=== PATIENT | female | born 1985 | race Caucasian/White ===

== ENCOUNTER 2018-05-06 13:16 | Emergency (ER) | payer OTHER ==
[~2018-05-06] VITALS: Ht 167.6 cm; Wt 77.1 kg
[~2018-05-06 13:16] MED LIST: IBUPROFEN 800800 M1 PO; PHENERGAN 25 MG25 M1 PO; POLYSACCHARIDE150 M2; PRENATAL MULTI1 EAC2 PO; VICODIN PO; ZOFRAN ODT4 MG PO; [UNRECOGNIZED DRUG - OTHER] PO
[2018-05-06] MEDS ORDERED: BENZONATATE200 MG PO (13:44)
[2018-05-06] MEDS ORDERED: PREDNISONE 10 M10 M1 PO (13:44)
[2018-05-06] MEDS ORDERED: VENTOLIN HFA INH8 GM INH (13:44)
[2018-05-06] MEDS ORDERED: MEDROLDOSEPACK PO (14:44)
[2018-05-06] MEDS ORDERED: ALLEGRA-D 12 H1 EAC1 PO (14:47)
[2018-05-06] MEDS ORDERED: ZYRTEC10 M4 PO (14:50)
[2018-05-06 15:04] VITALS: BP 128/87
== END 2018-05-06 15:05 | disposition home or self-care (01) ==
LOC: M.ERS 13:16
DX: J30.2 Other seasonal allergic rhinitis (principal); L25.9 Unspecified contact dermatitis, unspecified cause; H50.89 Other specified strabismus

== ENCOUNTER → 2018-07-28 | Outpatient (CLI) | payer OTHER ==
[~2018-07-28] MED LIST changes: +ALLEGRA-D 12 H1 EAC1 PO; +BENZONATATE200 MG PO; +MEDROLDOSEPACK PO; +PREDNISONE 10 M10 M1 PO; +VENTOLIN HFA INH8 GM INH; +ZYRTEC10 M4 PO
== END ==
LOC: M.LAB 11:53 → M.CT 11:53
DX: N83.292 Other ovarian cyst, left side (principal); I86.2 Pelvic varices; M41.86 Other forms of scoliosis, lumbar region; E55.9 Vitamin D deficiency, unspecified; R10.31 Right lower quadrant pain

== ENCOUNTER → 2018-08-19 | Outpatient (CLI) | payer OTHER | LOC: M.ULTRA 10:30 | DX: N83.201 Unspecified ovarian cyst, right side (principal) ==

== ENCOUNTER → 2018-08-24 | Outpatient (CLI) | payer OTHER ==
[2018-08-24 19:11] LABS: CA 125 86.8 U/mL (0.0-38.1)
== END ==
LOC: M.LAB 11:21
PROVIDERS: Obstetrics & Gynecology
DX: E55.9 Vitamin D deficiency, unspecified (principal); N83.209 Unspecified ovarian cyst, unspecified side

== ENCOUNTER → 2018-11-16 | Outpatient (CLI) | payer OTHER | LOC: M.LAB 07:00 → M.ULTRA 13:00 | DX: N83.201 Unspecified ovarian cyst, right side (principal); N88.8 Other specified noninflammatory disorders of cervix uteri; E55.9 Vitamin D deficiency, unspecified ==